=== PATIENT | female | born 1950 ===

== ENCOUNTER 2016-08-22 11:59 | Inpatient (IN) | payer MEDICARE, MEDICAID ==
[2016-08-22 11:59] VITALS: BMI 28.3
[2016-08-22] MEDS ORDERED: Albuterol-Ipratrop 3 mg / 0.5 (3 ml) UD IH STA (12:30)
--- NOTE | 2016-08-22 12:32 | ED PDOC ---
HPI: SOB/CHF/COPD Time Seen by Provider: 08/22/16 12:25 Chief Complaint (Nursing): Shortness Of Breath History Per: Patient (SOB assoc with cough productive white sputum. No improvement with inhalers at home. No fever. Recently hospitalized with pneumonia.) Onset/Duration Of Symptoms: Days (2) Current Symptoms Are (Timing): Still Present Quality: Tightness Exacerbating Factor(s): Coughing Current Respiratory Medications: See Home Med List Severity: Moderate Associated Symptoms: Productive Cough. denies: Fever, Chest Pain Past Medical History Vital Signs: Last Vital Signs Temp 98.6 F 08/22/16 12:16 Pulse 90 08/22/16 12:16 Resp 22 08/22/16 12:55 BP 114/81 08/22/16 12:16 Pulse Ox 97 08/22/16 12:32 - Medical History PMH: HTN - Family History Family History: States: Unknown Family Hx - Home Medications Home Medications: Ambulatory Orders Medication Instructions Recorded ALPRAZolam [Xanax] 1 mg PO TID 06/08/16 Melatonin 5 mg PO HS 06/08/16 [place]-3 Fatty Acids/Fish Oil 1 cap PO DAILY 06/08/16 [[place]-3 1,000 mg Softgel] Tocilizumab [Actemra] 162 mg SC Q14D 06/08/16 Turmeric Root Extract [Turmeric] 1 cap PO DAILY 06/08/16 Valsartan [Diovan] 160 mg PO DAILY 06/08/16 Cyanocobalamin [Vitamin B12 1000 1,000 mcg PO DAILY #14 tab 06/13/16 mcg Tab] Docusate [Colace] 100 mg PO BID #0 cap 06/14/16 - Allergies Allergies/Adverse Reactions: Allergies Allergy/AdvReac Type Severity Reaction Status Date / Time Sulfa (Sulfonamide Allergy RASH Verified 06/14/16 17:37 Antibiotics) Review of Systems ROS Statement: Except As Marked, All Systems Reviewed And Found Negative Respiratory: Positive for: Cough, Shortness of Breath Physical Exam - Reviewed Nursing Documentation Reviewed: Yes Vital Signs Reviewed: Yes - Physical Exam Appears: Positive for: Non-toxic, No Acute Distress Head Exam: Positive for: ATRAUMATIC, NORMAL INSPECTION, NORMOCEPHALIC Skin: Positive for: Normal Color, Warm, DRY Eye Exam: Positive for: EOMI, Normal appearance, PERRL ENT: Positive for: Normal ENT Inspection Neck: Positive for: Normal, Painless ROM Cardiovascular/Chest: Positive for: Regular Rate, Rhythm Respiratory: Positive for: Rhonchi. Negative for: Wheezing Gastrointestinal/Abdominal: Positive for: Normal Exam, Bowel Sounds, Soft Back: Positive for: Normal Inspection Extremity: Positive for: Normal ROM Neurologic/Psych: Positive for: Alert, Oriented - Laboratory Results Result Diagrams: 08/22/16 12:40 08/22/16 12:40 - ECG O2 Sat by Pulse Oximetry: 97 Disposition - Clinical Impression Clinical Impression: Obstructive chronic bronchitis with exacerbation - Patient ED Disposition Is Patient to be Admitted: Yes - Disposition Disposition Time: 14:57 Condition: FAIR - Pt Status Changed To: Hospital Disposition Of: Observation - POA Present On Arrival: None
[2016-08-22 12:57] LABS: BASO % 0.6 % (0.0-2.0); EOS # 0.2 K/uL (0.0-0.7); EOS % 2.2 % (0.0-4.0); HEMATOCRIT 39.8 % (34.0-47.0); LYMPH # 1.4 K/uL (1.0-4.3); LYMPH % 19.3 % (20.0-40.0); MEAN CELL VOLUME 85.2 fl (81.0-99.0); MEAN CORPUSCULAR HEMOGLOBIN 28.1 pg (27.0-31.0); MEAN PLATELET VOLUME 9.4 fl (7.2-11.7); MONO # 0.7 K/uL (0.0-0.8); NEUT # 4.7 K/uL (1.8-7.0); NEUT % 67.9 % (50.0-75.0); NRBC % 0.1 % (0.0-0.0); RED CELL DISTRIBUTION WIDTH 15.1 % (11.5-14.5)
[2016-08-22 13:04] LABS: ALB/GLOB RATIO 0.9 (1.0-2.1); ALKALINE PHOSPHATASE 70 U/L (38-126); ALT/SGPT 26 U/L (9-52); AST/SGOT 39 U/L (14-36); BILIRUBIN,TOTAL 1.2 mg/dl (0.2-1.3); BLOOD UREA NITROGEN 19 mg/dl (7-17); CALCIUM 9.9 mg/dL (8.4-10.2); CARBON DIOXIDE 25 mmol/L (22-30); CHLORIDE 107 mmol/L (98-107); GFR AFRICAN-AMERICAN > 60; GLUCOSE,RANDOM 92 mg/dL (65-105); POTASSIUM 4.5 MMOL/L (3.6-5.0); SODIUM 146 mmol/l (132-148); TOTAL PROTEIN 7.8 G/DL (6.3-8.2)
[2016-08-22] MEDS ORDERED: Albuterol-Ipratrop 3 mg / 0.5 (3 ml) UD ONE (13:22)
--- NOTE | 2016-08-22 15:02 | RAD ---
HISTORY: cough COMPARISON: Comparison made with prior chest radiograph 07/08/2016. FINDINGS: LUNGS: Atelectasis mild right basilar atelectasis and or scarring slightly improved from prior exam. PLEURA: No evidence of significant effusion or pneumothorax CARDIOVASCULAR: Aorta is slightly ectatic and uncoiled. Heart size within range of normal. OSSEOUS STRUCTURES: Mild multilevel degenerative spondylosis of the thoracic spine VISUALIZED UPPER ABDOMEN: Normal. OTHER FINDINGS: None. IMPRESSION: Mild residual right basilar atelectasis and or scarring improved from prior study
--- NOTE | 2016-08-22 16:16 | CARD ---
APPROVED REPORT EKG Measurement Heart [id number] <Conclusion> Normal sinus rhythm Possible Left atrial enlargement Borderline ECG
[2016-08-22] MEDS ORDERED: Patient's Own Med (Budesonide/Formoterol Fumarate [Symbicort 160-4.5 Mcg Inhaler] 1 PUFF) IH SCH (18:15)
[2016-08-22] MEDS: Albuterol-Ipratrop 3 mg / 0.5 (3 ml) UD INH SCH (20:00)
[2016-08-22] MEDS: methylPREDNISolone 60 MG in Sodium Chloride 0.9% 50 ML IVPB SCH (21:47)
[2016-08-22] MEDS: Levalbuterol 0.63 MG/3 ML Inhal Soln UD INH SCH (22:30)
[2016-08-22] MEDS: Levalbuterol 0.63 MG/3 ML Inhal Soln UD INH PRN (22:30)
--- NOTE | 2016-08-22 23:11 | CP.PCM.HP ---
Past Patient History - Past Medical History & Family History Past Medical History?: Yes - Past Social History Smoking Status: Never Smoked - CARDIAC Hx Cardiac Disorders: Yes Hx Hypertension: Yes - PULMONARY Hx Respiratory Disorders: Yes Hx Chronic Obstructive Pulmonary Disease (COPD): Yes Hx Pulmonary Edema: Yes - NEUROLOGICAL Hx Neurological Disorder: No - HEENT Hx HEENT Problems: Yes Hx Macular Degeneration: Yes - RENAL Hx Chronic Kidney Disease: No - ENDOCRINE/METABOLIC Hx Endocrine Disorders: No - HEMATOLOGICAL/ONCOLOGICAL Hx Blood Disorders: Yes Hx Blood Transfusions: Yes Hx Blood Transfusion Reaction: No Hx Hepatitis C: Yes - INTEGUMENTARY Hx Dermatological Problems: No - MUSCULOSKELETAL/RHEUMATOLOGICAL Hx Musculoskeletal Disorders: No Hx Falls: No - GASTROINTESTINAL Hx Gastrointestinal Disorders: No - GENITOURINARY/GYNECOLOGICAL Hx Genitourinary Disorders: No - PSYCHIATRIC Hx Psychophysiologic Disorder: No Hx Substance Use: No - SURGICAL HISTORY Hx Surgeries: Yes Hx Orthopedic Surgery: Yes (right shoulder,right knee) - ANESTHESIA Hx Anesthesia: Yes Hx Anesthesia Reactions: No Meds Allergies/Adverse Reactions: Allergies Allergy/AdvReac Type Severity Reaction Status Date / Time Sulfa (Sulfonamide Allergy RASH Verified 06/14/16 17:37 Antibiotics) Results - Vital Signs Recent Vital Signs: Last Vital Signs Temp 98.4 F 08/22/16 21:00 Pulse 89 08/22/16 22:30 Resp 20 08/22/16 21:00 BP 124/79 08/22/16 21:00 Pulse Ox 97 08/22/16 21:00 - Labs Result Diagrams: 08/22/16 12:40 08/22/16 12:40
[2016-08-23] MEDS: methylPREDNISolone 60 MG in Sodium Chloride 0.9% 50 ML IVPB SCH ×4 (04:34→22:14)
[2016-08-23 06:26] LABS: BASO % 0.1 % (0.0-2.0); HEMATOCRIT 38.9 % (34.0-47.0); LYMPH # 0.4 K/uL (1.0-4.3); LYMPH % 7.3 % (20.0-40.0); MEAN CELL VOLUME 84.2 fl (81.0-99.0); MEAN CORPUSCULAR HEMOGLOBIN 27.9 pg (27.0-31.0); MEAN CORPUSCULAR HGB CONC 33.2 g/dL (33.0-37.0); MEAN PLATELET VOLUME 9.8 fl (7.2-11.7); MONO # 0.1 K/uL (0.0-0.8); NEUT # 4.5 K/uL (1.8-7.0); NEUT % 89.6 % (50.0-75.0); NRBC % 0.1 % (0.0-0.0); PLATELET COUNT 95 K/uL (130-400); RED CELL DISTRIBUTION WIDTH 14.8 % (11.5-14.5)
[2016-08-23 06:32] LABS: BLOOD UREA NITROGEN 16 mg/dl (7-17); CALCIUM 10.1 mg/dL (8.4-10.2); CARBON DIOXIDE 23 mmol/L (22-30); CHLORIDE 107 mmol/L (98-107); GFR AFRICAN-AMERICAN > 60; GLUCOSE,RANDOM 152 mg/dL (65-105); POTASSIUM 4.3 MMOL/L (3.6-5.0); SODIUM 144 mmol/l (132-148)
[2016-08-23] MEDS: Albuterol-Ipratrop 3 mg / 0.5 (3 ml) UD INH SCH (07:57)
[2016-08-23] MEDS: Levalbuterol 0.63 MG/3 ML Inhal Soln UD INH PRN (08:04)
[2016-08-23] MEDS: Omega-3-Acid Ethyl Esters 1 GM Cap PO SCH (09:01)
[2016-08-23] MEDS ORDERED: Sodium Chloride 0.9% 50 ML IV ONE (09:06)
[2016-08-23] MEDS ORDERED: Iohexol 300 100 ML IJ ONE (09:06)
[2016-08-23 10:48] LABS: NEUTROPHIL 89 % (42-75); TOTAL CELLS COUNTED 100
[2016-08-23 10:51] LABS: LARGE PLATELETS PRESENT
--- NOTE | 2016-08-23 11:10 | CP.PCM.CON ---
History of Present Illness - History of Present Illness History of Present Illness: 66 yo female Hx of Hep C (treated) Cirrhosis RA HTN COPD anxiety/ depression admitted with exac COPD, non resolving pneumonia, tachycardia chronic constipation IV rx in progress Past Patient History - Past Medical History & Family History Past Medical History?: Yes - Past Social History Smoking Status: Never Smoked - CARDIAC Hx Cardiac Disorders: Yes Hx Hypertension: Yes - PULMONARY Hx Respiratory Disorders: Yes Hx Chronic Obstructive Pulmonary Disease (COPD): Yes Hx Pulmonary Edema: Yes - NEUROLOGICAL Hx Neurological Disorder: No - HEENT Hx HEENT Problems: Yes Hx Macular Degeneration: Yes - RENAL Hx Chronic Kidney Disease: No - ENDOCRINE/METABOLIC Hx Endocrine Disorders: No - HEMATOLOGICAL/ONCOLOGICAL Hx Blood Disorders: Yes Hx Blood Transfusions: Yes Hx Blood Transfusion Reaction: No Hx Hepatitis C: Yes - INTEGUMENTARY Hx Dermatological Problems: No - MUSCULOSKELETAL/RHEUMATOLOGICAL Hx Musculoskeletal Disorders: No Hx Falls: No - GASTROINTESTINAL Hx Gastrointestinal Disorders: No - GENITOURINARY/GYNECOLOGICAL Hx Genitourinary Disorders: No - PSYCHIATRIC Hx Psychophysiologic Disorder: No Hx Substance Use: No - SURGICAL HISTORY Hx Surgeries: Yes Hx Orthopedic Surgery: Yes (right shoulder,right knee) - ANESTHESIA Hx Anesthesia: Yes Hx Anesthesia Reactions: No Meds Allergies/Adverse Reactions: Allergies Allergy/AdvReac Type Severity Reaction Status Date / Time Sulfa (Sulfonamide Allergy RASH Verified 06/14/16 17:37 Antibiotics) - Medications Medications: Current Medications Alprazolam (Xanax) 1 mg PO TID PRN PRN Reason: Anxiety Last Admin: 08/22/16 23:04 Dose: 1 mg Cyanocobalamin (Vitamin B12 1000 Mcg Tab) 1,000 mcg PO DAILY [facility] Last Admin: 08/23/16 09:01 Dose: 1,000 mcg Home Med (Melatonin [Melatonin]) 5 mg PO HS [facility] Levofloxacin/Dextrose (Levaquin 500mg) 100 mls @ 100 mls/hr IVPB DAILY [facility] Last Admin: 08/23/16 09:03 Dose: 100 mls/hr Methylprednisolone 60 mg/ (Sodium Chloride) 50.96 mls @ 100 mls/hr IVPB Q6 [facility] Last Admin: 08/23/16 09:03 Dose: 100 mls/hr Levalbuterol HCl (Xopenex) 0.63 mg INH RQ6 [facility] [id number] Ethyl Esters (Lovaza) 1 gm PO DAILY [facility] Last Admin: 08/23/16 09:01 Dose: 1 gm Valsartan (Diovan) 160 mg PO DAILY [facility] Last Admin: 08/23/16 09:01 Dose: 160 mg Results - Vital Signs Recent Vital Signs: Last Vital Signs Temp 97.8 F 08/23/16 09:00 Pulse 105 H 08/23/16 09:00 Resp 20 08/23/16 09:00 BP 154/76 H 08/23/16 09:00 Pulse Ox 95 08/23/16 09:00 - Labs Result Diagrams: 08/23/16 05:40 08/23/16 05:40 Labs: Laboratory Results - last 24 hr 08/23/16 05:40 WBC 5.0 RBC 4.62 Hgb 12.9 Hct 38.9 MCV 84.2 MCH 27.9 MCHC 33.2 RDW 14.8 H Plt Count 95 L D MPV 9.8 Neut % (Auto) 89.6 H Lymph % (Auto) 7.3 L [place] % (Auto) 3.0 Eos % (Auto) 0.0 Baso % (Auto) 0.1 Neut # 4.5 Lymph # 0.4 L [place] # 0.1 Eos # 0.0 Baso # 0.0 Neutrophils % (Manual) 89 H Band Neutrophils % 1 Lymphocytes % (Manual) 5 L Monocytes % (Manual) 5 Platelet Estimate Decreased L Large Platelets Present Anisocytosis (manual) Slight Sodium 144 Potassium 4.3 Chloride 107 Carbon Dioxide 23 Anion Gap 18 BUN 16 Creatinine 0.5 L Est GFR ( Amer) > 60 Est GFR (Non-Af Amer) > 60 Random Glucose 152 H Calcium 10.1
--- NOTE | 2016-08-23 11:47 | CT ---
PROCEDURE: CT Chest with contrast HISTORY: Tachycardia, sob COMPARISON: None. TECHNIQUE: Contiguous axial images were obtained through the chest with intravenous contrast enhancement. Sagittal and coronal reconstructions were performed. IV contrast: 95 cc Omnipaque 350 Radiation dose (DLP): 617.16. MGy-cm. This CT exam was performed using one or more of the following dose reduction techniques: Automated exposure control, adjustment of the mA and/or kV according to patient size, and/or use of iterative reconstruction technique. FINDINGS: LUNGS: Chronic changes, right middle lobe and right lower lobe. There is a component of volume loss not seen previously without obvious apparent endobronchial abnormality. Overall appearance suggests bronchiectasis. Stable 4 mm pulmonary nodule superior segment right lower lobe. No additional pulmonary nodules, masses or infiltrates. Lingular scarring, apical scarring on the left. Lower airway disease, thickening of the bronchi bilaterally without evidence of mucous plugging. MEDIASTINUM: Unremarkable thoracic aorta. No aneurysm or dissection. Normal sized heart. Main pulmonary artery unremarkable. No vascular congestion. No lymphadenopathy. PLEURA: No pleural fluid. No pneumothorax. BONES: No fracture. No destructive lesion. UPPER ABDOMEN: Incompletely visualized hepatosplenomegaly. OTHER FINDINGS: None. IMPRESSION: 1. Chronic changes right middle lobe right lower lobe likely bronchiectasis. A component of volume loss in the affected segments noted. 2. Stable pulmonary nodule superior segment right lower lobe. Additional pulmonary nodules apparent on the prior study are obscured by the collapse of the right lung.
[2016-08-23] MEDS: Levalbuterol 0.63 MG/3 ML Inhal Soln UD INH SCH ×2 (13:46→20:10)
[2016-08-23] MEDS: MELATONIN 10 MG PO SCH (22:14)
--- NOTE | 2016-08-23 23:33 | CP.PCM.PN ---
Subjective - Date & Time of Evaluation Date of Evaluation: 08/23/16 Time of Evaluation: 13:20 Objective - Vital Signs/Intake and Output Vital Signs (last 24 hours): Temp Pulse Resp BP Pulse Ox 97.3 F L 86 18 137/75 95 08/23/16 20:25 08/23/16 20:25 08/23/16 20:25 08/23/16 20:25 08/23/16 20:25 - Medications Medications: Current Medications Alprazolam (Xanax) 1 mg PO TID PRN PRN Reason: Anxiety Last Admin: 08/23/16 22:18 Dose: 1 mg Cyanocobalamin (Vitamin B12 1000 Mcg Tab) 1,000 mcg PO DAILY REPLACED BY [facility] Last Admin: 08/23/16 09:01 Dose: 1,000 mcg Home Med (Melatonin [Melatonin]) 10 mg PO HS [facility]PLAC[facility] Last Admin: 08/23/16 22:14 Dose: 10 mg Levofloxacin/Dextrose (Levaquin 500mg) 100 mls @ 100 mls/hr IVPB DAILY [facility]PL[facility] BY [facility] Last Admin: 08/23/16 09:03 Dose: 100 mls/hr Methylprednisolone 60 mg/ (Sodium Chloride) 50.96 mls @ 100 mls/hr IVPB Q6 [facility]PL[facility] Last Admin: 08/23/16 22:14 Dose: 100 mls/hr Levalbuterol HCl (Xopenex) 0.63 mg INH RQ6 [facility]PL[facility] Last Admin: 08/23/16 20:10 Dose: 0.63 mg Neknz-5-Cjnm Ethyl Esters (Lovaza) 1 gm PO DAILY REPLACED BY [facility] Last Admin: 08/23/16 09:01 Dose: 1 gm Valsartan (Diovan) 160 mg PO DAILY REPLACED BY [facility] Last Admin: 08/23/16 09:01 Dose: 160 mg
[2016-08-24] MEDS: Levalbuterol 0.63 MG/3 ML Inhal Soln UD INH SCH ×4 (01:10→20:00)
[2016-08-24] MEDS: methylPREDNISolone 60 MG in Sodium Chloride 0.9% 50 ML IVPB SCH ×4 (05:00→21:27)
[2016-08-24] MEDS: Omega-3-Acid Ethyl Esters 1 GM Cap PO SCH (09:13)
[2016-08-24] MEDS ORDERED: Sodium Chloride 3% for Inhalation 4 ML VIAL.NEB IH PRN (09:20)
--- NOTE | 2016-08-24 11:03 | CON ---
DATE: 08/24/2016 HISTORY OF PRESENT ILLNESS: The patient is a 66-old female who was referred for pulmonary evaluation because of nonresolving pneumonia, tachycardia, shortness of breath with cough for the past several days prior to presentation. She is well-known to me from prior admission when she was admitted to [facility] transitional care unit, and had a diagnosis of pneumonia with bronchiectasis. PAST MEDICAL HISTORY: Rheumatoid arthritis, hepatitis C, anxiety, depression, and COPD with pneumoni a. FAMILY HISTORY: Nonrevealing. SOCIAL HISTORY: She does not smoke or drink and has no ____ exposure to ____. REVIEW OF SYSTEMS: Remarkable for cough, shortness of breath, exercise intolerance. PHYSICAL EXAMINATION: GENERAL: The patient is alert, oriented, appears to be clinically improving since admission. VITAL SIGNS: Blood pressure 131/74, pulse of 63, respiratory rate 18. She is afebrile. O2 sat 95% on room air. SKIN: Shows fair turgor. HEENT: Pupils are equal and react to light and accommodation. Mouth shows fair hygiene. NECK: JVP flat. LUNGS: Bilateral scattered rales. HEART: S1, S2. BREASTS: Normal. ABDOMEN: Soft, nontender. No organomegaly. EXTREMITIES: Show no edema or cyanosis. There are changes of arthritis noted. LABORATORY DATA: CT scan of the chest is remarkable for findings compatible with bronchiectasis, pul monary nodularity, with some atelectatic changes of lungs clinically unchanged from last scan done se veral months ago. WBC 5.0, hemoglobin 12.9, platelet count 95,000. Sodium 144, potassium 4.3, BUN of 16, creatinine 0. 5, serum glucose 152. IMPRESSION: Acute exacerbation of chronic obstructive pulmonary disease with bronchiectasis. This c ould also be due to a component of rheumatoid lung disease, history of hepatitis C. PLAN: Obtain sputum for Gram stain and cultures. Continue IV antibiotics. Septic workup already st arted. The patient does not need aggressive pulmonary intervention including bronchoscopy at this po int. Will need postural drainage with chest PT and aerosolized bronchodilators. We will repeat CT s can of the chest in several months to evaluate stability of pulmonary nodules, some bronchiectatic ch anges. If changes worsen, then maybe bronchoscopy will be entertained. If changes remain the same, then just therapy with antibiotics and postural drainage with aerosolized bronchodilators would be re commended. We will continue to follow with you. Case discussed with the patient at length. Evens Potts MD cc: 62 TT: 08/24/2016 11:02:52 Confirmation # [id number] Dictation # [id number] andie
--- NOTE | 2016-08-24 13:46 | CP.PCM.PN ---
Subjective - Date & Time of Evaluation Date of Evaluation: 08/24/16 Time of Evaluation: 09:00 - Subjective Subjective: 66 yo female Hx of Hep C (treated) Cirrhosis RA HTN COPD anxiety/ depression admitted with exac COPD, non resolving pneumonia, tachycardia chronic constipation IV rx in progress Objective - Vital Signs/Intake and Output Vital Signs (last 24 hours): Temp Pulse Resp BP Pulse Ox 97.8 F 82 18 152/79 H 96 08/24/16 12:28 08/24/16 12:28 08/24/16 12:28 08/24/16 12:28 08/24/16 12:28 - Medications Medications: Current Medications Alprazolam (Xanax) 1 mg PO TID PRN PRN Reason: Anxiety Last Admin: 08/23/16 22:18 Dose: 1 mg Cyanocobalamin (Vitamin B12 1000 Mcg Tab) 1,000 mcg PO DAILY [facility] Last Admin: 08/24/16 09:13 Dose: 1,000 mcg Home Med (Melatonin [Melatonin]) 10 mg PO HS [facility] Last Admin: 08/23/16 22:14 Dose: 10 mg Levofloxacin/Dextrose (Levaquin 500mg) 100 mls @ 100 mls/hr IVPB DAILY [facility] Last Admin: 08/24/16 09:14 Dose: 100 mls/hr Methylprednisolone 60 mg/ (Sodium Chloride) 50.96 mls @ 100 mls/hr IVPB Q6 [facility] Last Admin: 08/24/16 09:14 Dose: 100 mls/hr Lactulose (Enulose) 20 gm PO DAILY PRN PRN Reason: Constipation Levalbuterol HCl (Xopenex) 0.63 mg INH RQ6 [facility] Last Admin: 08/24/16 07:38 Dose: 0.63 mg Hdqkk-[id number] Ethyl Esters (Lovaza) 1 gm PO DAILY [facility] Last Admin: 08/24/16 09:13 Dose: 1 gm Valsartan (Diovan) 160 mg PO DAILY [facility] Last Admin: 08/24/16 09:13 Dose: 160 mg - Constitutional Appears: Non-toxic, Cachectic - Head Exam Head Exam: NORMOCEPHALIC - Eye Exam Eye Exam: PERRL. absent: Scleral icterus - ENT Exam ENT Exam: Mucous Membranes Dry - Neck Exam Neck Exam: absent: Lymphadenopathy - Respiratory Exam Respiratory Exam: Decreased Breath Sounds, Rhonchi - Cardiovascular Exam Cardiovascular Exam: REGULAR RHYTHM, +S1, +S2 - GI/Abdominal Exam GI & Abdominal Exam: Distended, Soft. absent: Tenderness - Rectal Exam Rectal Exam: Deferred - Exam Exam: NORMAL INSPECTION Assessment and Plan (1) COPD exacerbation Status: Acute (2) Pneumonia Status: Acute (3) Rheumatoid arthritis Status: Acute - Assessment and Plan (Free Text) Assessment: lung findings could be related to RA dr Potts on board- will need to follow as out pt prognosis guarded
[2016-08-24] MEDS: MELATONIN 10 MG PO SCH (21:27)
--- NOTE | 2016-08-24 22:16 | CP.PCM.PN ---
Subjective - Date & Time of Evaluation Date of Evaluation: 08/24/16 Time of Evaluation: 16:20 Objective - Vital Signs/Intake and Output Vital Signs (last 24 hours): Temp Pulse Resp BP Pulse Ox 98.4 F 91 H 20 105/73 96 08/24/16 19:27 08/24/16 19:27 08/24/16 19:27 08/24/16 19:27 08/24/16 19:27 - Medications Medications: Current Medications Alprazolam (Xanax) 1 mg PO TID PRN PRN Reason: Anxiety Last Admin: 08/24/16 21:20 Dose: 1 mg Cyanocobalamin (Vitamin B12 1000 Mcg Tab) 1,000 mcg PO DAILY [facility] Last Admin: 08/24/16 09:13 Dose: 1,000 mcg Home Med (Melatonin [Melatonin]) 10 mg PO HS [facility] Last Admin: 08/24/16 21:27 Dose: 10 mg Levofloxacin/Dextrose (Levaquin 500mg) 100 mls @ 100 mls/hr IVPB DAILY [facility] Last Admin: 08/24/16 09:14 Dose: 100 mls/hr Methylprednisolone 60 mg/ (Sodium Chloride) 50.96 mls @ 100 mls/hr IVPB Q6 [facility] Last Admin: 08/24/16 21:27 Dose: 100 mls/hr Lactulose (Enulose) 20 gm PO DAILY PRN PRN Reason: Constipation Levalbuterol HCl (Xopenex) 0.63 mg INH RQ6 [facility] Last Admin: 08/24/16 20:00 Dose: 0.63 mg Pepzd-6-Ueks Ethyl Esters (Lovaza) 1 gm PO DAILY [facility] Last Admin: 08/24/16 09:13 Dose: 1 gm Valsartan (Diovan) 160 mg PO DAILY [facility] Last Admin: 08/24/16 09:13 Dose: 160 mg
[2016-08-25] MEDS: Levalbuterol 0.63 MG/3 ML Inhal Soln UD INH SCH ×3 (01:00→13:17)
[2016-08-25] MEDS: methylPREDNISolone 60 MG in Sodium Chloride 0.9% 50 ML IVPB SCH ×2 (04:45→09:12)
--- NOTE | 2016-08-25 08:29 | CP.PCM.PN ---
Subjective - Date & Time of Evaluation Date of Evaluation: 08/25/16 Time of Evaluation: 08:29 - Subjective Subjective: COUGH WITH SOB IMPROVING NO CHEST PAINS Objective - Vital Signs/Intake and Output Vital Signs (last 24 hours): Temp Pulse Resp BP Pulse Ox 97.9 F 60 20 136/79 95 08/25/16 05:08 08/25/16 05:08 08/25/16 05:08 08/25/16 05:08 08/25/16 05:08 - Medications Medications: Current Medications Alprazolam (Xanax) 1 mg PO TID PRN PRN Reason: Anxiety Last Admin: 08/24/16 21:20 Dose: 1 mg Cyanocobalamin (Vitamin B12 1000 Mcg Tab) 1,000 mcg PO DAILY [facility] Last Admin: 08/24/16 09:13 Dose: 1,000 mcg Home Med (Melatonin [Melatonin]) 10 mg PO HS [facility] Last Admin: 08/24/16 21:27 Dose: 10 mg Levofloxacin/Dextrose (Levaquin 500mg) 100 mls @ 100 mls/hr IVPB DAILY [facility] Last Admin: 08/24/16 09:14 Dose: 100 mls/hr Methylprednisolone 60 mg/ (Sodium Chloride) 50.96 mls @ 100 mls/hr IVPB Q6 [facility] Last Admin: 08/25/16 04:45 Dose: 100 mls/hr Lactulose (Enulose) 20 gm PO DAILY PRN PRN Reason: Constipation Levalbuterol HCl (Xopenex) 0.63 mg INH RQ6 [facility] Last Admin: 08/25/16 07:20 Dose: 0.63 mg Kxzhk-4-Yjfb Ethyl Esters (Lovaza) 1 gm PO DAILY [facility] Last Admin: 08/24/16 09:13 Dose: 1 gm Valsartan (Diovan) 160 mg PO DAILY [facility] Last Admin: 08/24/16 09:13 Dose: 160 mg - Constitutional Appears: Well - Head Exam Head Exam: ATRAUMATIC, NORMAL INSPECTION, NORMOCEPHALIC - Eye Exam Eye Exam: EOMI, Normal appearance, PERRL Pupil Exam: NORMAL ACCOMODATION, PERRL - ENT Exam ENT Exam: Mucous Membranes Moist, Normal Exam - Neck Exam Neck Exam: Full ROM, Normal Inspection. absent: Lymphadenopathy - Respiratory Exam Respiratory Exam: Decreased Breath Sounds, Prolonged Expiratory Phase, Rales, NORMAL BREATHING PATTERN - Cardiovascular Exam Cardiovascular Exam: REGULAR RHYTHM, +S1, +S2. absent: Murmur - GI/Abdominal Exam GI & Abdominal Exam: Soft, Normal Bowel Sounds. absent: Tenderness - Rectal Exam Rectal Exam: NORMAL INSPECTION - Extremities Exam Extremities Exam: Full ROM, Normal Capillary Refill, Normal Inspection. absent : Joint Swelling, Pedal Edema - Back Exam Back Exam: NORMAL INSPECTION - Neurological Exam Neurological Exam: Alert, Awake, CN II-XII Intact, Normal Gait, Oriented x3 - Psychiatric Exam Psychiatric exam: Normal Affect, Normal Mood - Skin Skin Exam: Dry, Intact, Normal Color, Warm Assessment and Plan - Assessment and Plan (Free Text) Assessment: ACUTE EXAC OF COPD BRONCHIECTASIS Plan: CONTINUE BRONCHODILATORS AND ANTIBIOTIC RX WILL LEAVE PRESCRIPTION FOR NEBULIZER AND XOPONEX ON DISCHARGE
[2016-08-25] MEDS: Omega-3-Acid Ethyl Esters 1 GM Cap PO SCH (08:52)
[2016-08-25 09:00] VITALS: PULSE 70
[2016-08-25 12:21] VITALS: BP 124/69; RESP 20; TEMP 97.6; O2SAT 96
--- NOTE | 2016-08-25 17:56 | CP.PCM.DIS ---
Provider - Provider Date of Admission: 08/23/16 14:22 Attending physician: Swapnil Collazo MD Time Spent in preparation of Discharge (in minutes): 25 Hospital Course - Lab Results Lab Results: Micro Results 08/24/16 10:41 Blood-Venous Blood Culture - Preliminary NO GROWTH AFTER 24 HOURS 08/24/16 10:41 Blood-Venous Blood Culture - Preliminary NO GROWTH AFTER 24 HOURS Most Recent Lab Values WBC 5.0 K/uL (4.8-10.8) 08/23/16 05:40 RBC 4.62 Mil/uL (3.80-5.20) 08/23/16 05:40 Hgb 12.9 g/dL (12.0-16.0) 08/23/16 05:40 Hct 38.9 % (34.0-47.0) 08/23/16 05:40 MCV 84.2 fl (81.0-99.0) 08/23/16 05:40 MCH 27.9 pg (27.0-31.0) 08/23/16 05:40 MCHC 33.2 g/dL (33.0-37.0) 08/23/16 05:40 RDW 14.8 % (11.5-14.5) H 08/23/16 05:40 Plt Count 95 K/uL (130-400) L D 08/23/16 05:40 MPV 9.8 fl (7.2-11.7) 08/23/16 05:40 Neut % (Auto) 89.6 % (50.0-75.0) H 08/23/16 05:40 Lymph % (Auto) 7.3 % (20.0-40.0) L 08/23/16 05:40 [place] % (Auto) 3.0 % (0.0-10.0) 08/23/16 05:40 Eos % (Auto) 0.0 % (0.0-4.0) 08/23/16 05:40 Baso % (Auto) 0.1 % (0.0-2.0) 08/23/16 05:40 Neut # 4.5 K/uL (1.8-7.0) 08/23/16 05:40 Lymph # 0.4 K/uL (1.0-4.3) L 08/23/16 05:40 [place] # 0.1 K/uL (0.0-0.8) 08/23/16 05:40 Eos # 0.0 K/uL (0.0-0.7) 08/23/16 05:40 Baso # 0.0 K/uL (0.0-0.2) 08/23/16 05:40 Neutrophils % (Manual) 89 % (42-75) H 08/23/16 05:40 Band Neutrophils % 1 % (0-2) 08/23/16 05:40 Lymphocytes % (Manual) 5 % (20-50) L 08/23/16 05:40 Monocytes % (Manual) 5 % (0-10) 08/23/16 05:40 Platelet Estimate Decreased (NORMAL) L 08/23/16 05:40 Large Platelets Present 08/23/16 05:40 Anisocytosis (manual) Slight 08/23/16 05:40 Sodium 144 mmol/l (132-148) 08/23/16 05:40 Potassium 4.3 MMOL/L (3.6-5.0) 08/23/16 05:40 Chloride 107 mmol/L (98-107) 08/23/16 05:40 Carbon Dioxide 23 mmol/L (22-30) 08/23/16 05:40 Anion Gap 18 (10-20) 08/23/16 05:40 BUN 16 mg/dl (7-17) 08/23/16 05:40 Creatinine 0.5 mg/dL (0.7-1.2) L 08/23/16 05:40 Est GFR ( Amer) > 60 08/23/16 05:40 Est GFR (Non-Af Amer) > 60 08/23/16 05:40 Random Glucose 152 mg/dL (65-105) H 08/23/16 05:40 Calcium 10.1 mg/dL (8.4-10.2) 08/23/16 05:40 Total Bilirubin 1.2 mg/dl (0.2-1.3) 08/22/16 12:40 AST 39 U/L (14-36) H D 08/22/16 12:40 ALT 26 U/L (9-52) 08/22/16 12:40 Alkaline Phosphatase 70 U/L (38-126) 08/22/16 12:40 Total Protein 7.8 G/DL (6.3-8.2) 08/22/16 12:40 Albumin 3.6 g/dL (3.5-5.0) 08/22/16 12:40 Globulin 4.2 gm/dL (2.2-3.9) H 08/22/16 12:40 Albumin/Globulin Ratio 0.9 (1.0-2.1) L 08/22/16 12:40 Discharge Exam - Head Exam Head Exam: ATRAUMATIC, NORMAL INSPECTION, NORMOCEPHALIC Discharge Plan - Discharge Medications Prescriptions: Valsartan [Diovan] 160 mg PO DAILY #30 tablet Levofloxacin [Levaquin] 500 mg PO DAILY #5 tablet Levalbuterol HCl [Xopenex] 0.63 mg IH TID #90 vial.neb - Follow Up Plan Condition: FAIR Disposition: HOME/ ROUTINE
--- NOTE | 2016-09-08 09:10 | PQF GENQUE ---
This form is a permanent part of the medical record DR. Castor SEMAN: ER CLINICAL IMPRESSION: OBSTRUCTIVE CHRONIC BRONCHITIS WITH EXACERBATION. PULMONARY CONSULT: DR. Taurus MEJÍA IMPRESSION: ACUTE EXACERBATION OF COPD WITH BRONCHIECTASIS. ID CONSULT: DR. Matthew JEAN-BAPTISTE EXACERBATION OF COPD, NON RESOLVING PNEUMONIA. D/C SUMMARY AND H&P IN DRAFT NOT COMPLETE COULD YOU PLEASE CONFIRM PRINCIPAL DIAGNOSIS AND IF PNEUMONIA WAS RULED IN OR OUT (POA). Clarification of your documentation is requested to better reflect the severity of illness and intensity of treatment of your patient. Indicators present: No Indicators Present [] Specify: [] [] Specify: [] [] Specify: [] [] Specify: [] Location in the medical record that reflects the above clinical findings: [X] Acute Exacerbation of COPD with Bronchiectasis, Pneumonia Ruled out Treatment Provided: [X] DuoNeb, IV Slumedrol and IV antibiotics PHYSICIAN'S RESPONSE Based on your medical judgment of the clinical indicators outlined above please clarify the following: [X] Practitioner response [] If unable to determine, please check the box, sign and date. Present On Admission (POA) Indicator: [X] Present at the time of admission [] Not present at the time of admission [] Clinically Undetermined In responding to this query, please exercise your independent professional judgment. The fact that a question is asked does not imply that any particular answer is desired or expected. Thank you for your clarification on this documentation. If you have any questions please call:[ ] * Thank you, * SOLITARIO CHIU [phone] instrument panel assembler GITA
== END 2016-08-25 14:38 | disposition home health service (06) | DRG 192 ==
LOC: H.ER 11:59 → H.ERHOLD 14:57 → H.TEL 16:18 → OBSVTOIN 08-23 14:22
PROVIDERS: ADMIT Internal Medicine; ATTEND Internal Medicine
PROC: 3E0F7GC Introduction of Other Therapeutic Substance into Respiratory Tract, Via Natural or Artificial Opening (ICD-10-PCS; principal; 2016-08-23)
DX: J44.1 Chronic obstructive pulmonary disease with (acute) exacerbation (principal); K74.60 Unspecified cirrhosis of liver; I10 Essential (primary) hypertension; H35.30 Unspecified macular degeneration; Z86.19 Personal history of other infectious and parasitic diseases; M06.9 Rheumatoid arthritis, unspecified; Z88.2 Allergy status to sulfonamides

== ENCOUNTER 2017-01-31 10:17 | Emergency (ER) | payer MEDICARE, OTHER ==
[2017-01-31 10:17] VITALS: BMI 28.3
[2017-01-31 10:24] VITALS: BP 115/69; PULSE 75; TEMP 97.9; O2SAT 100
--- NOTE | 2017-01-31 10:54 | ED PDOC ---
HPI: Female Pain Time Seen by Provider: 01/31/17 10:35 Chief Complaint (Nursing): Shortness Of Breath Chief Complaint (Provider): dysuria History Per: Patient History/Exam Limitations: no limitations Additional Complaint(s): Romi Amaya is a 66 year old female, with a previous medical history of hypertension and anxiety, who presents to the ED with complaints of dysuria associated with abdominal pain, nausea, vomiting and a fever of 102. Patient reports since June 2016 to having a UTI that has been evaluated by her urologist and ID specialist but continues to recur. Patient reports currently jennifer on Ampicillin since 01/24/17. She reports a CT performed 01/11 that showed fluid in her pelvic and cyst on right kidney. PMD: Dr. Duenas Past Medical History Reviewed: Historical Data, Nursing Documentation, Vital Signs Vital Signs: Last Vital Signs Temp 97.9 F 01/31/17 10:21 Pulse 75 01/31/17 10:21 Resp 18 01/31/17 10:21 BP 115/69 01/31/17 10:21 Pulse Ox 100 01/31/17 10:21 - Medical History PMH: COPD, HTN, Pneumonia Denies: Chronic Kidney Disease - Family History Family History: States: Unknown Family Hx - Home Medications Home Medications: Ambulatory Orders Medication Instructions Recorded ALPRAZolam [Xanax] 1 mg PO TID PRN 06/08/16 [place]-3 Fatty Acids/Fish Oil 1,000 mg PO DAILY 06/08/16 [[place]-3 1,000 mg Softgel] Cyanocobalamin [Vitamin B12 1000 1,000 mcg PO DAILY #14 tab 06/13/16 mcg Tab] Albuterol HFA [Ventolin HFA 90 2 puff IH Q4H PRN 08/22/16 mcg/actuation (8 g)] Budesonide/Formoterol Fumarate 1 puff IH Q12H 08/22/16 [Symbicort 160-4.5 Mcg Inhaler] Valsartan [Diovan] 160 mg PO DAILY #30 tablet 08/25/16 Ampicillin Trihydrate [Ampicillin 500 mg PO Q8H 01/31/17 Trihydrate] Fluticasone Propionate [Flonase] 2 spray REBA DAILY PRN 01/31/17 Magnesium Oxide [Magox 400] 400 mg PO DAILY 09/19/17 Montelukast [Singulair] 10 mg PO QPM 01/31/17 Phenazopyridine [Pyridium] 200 mg PO TID PRN #6 tab 01/31/17 Turmeric Root Extract [Turmeric] 500 mg PO DAILY 01/31/17 - Allergies Allergies/Adverse Reactions: Allergies Allergy/AdvReac Type Severity Reaction Status Date / Time Sulfa (Sulfonamide Allergy RASH Verified 01/31/17 10:21 Antibiotics) Review of Systems ROS Statement: Except As Marked, All Systems Reviewed And Found Negative Constitutional: Positive for: Fever Gastrointestinal: Positive for: Nausea, Vomiting, Abdominal Pain Genitourinary Female: Positive for: Dysuria Physical Exam - Reviewed Nursing Documentation Reviewed: Yes Vital Signs Reviewed: Yes - Physical Exam Appears: Positive for: Well, Non-toxic, No Acute Distress Head Exam: Positive for: ATRAUMATIC, NORMAL INSPECTION, NORMOCEPHALIC Skin: Positive for: Normal Color, Warm, DRY Eye Exam: Positive for: EOMI, Normal appearance, PERRL ENT: Positive for: Normal ENT Inspection Neck: Positive for: Normal, Painless ROM Cardiovascular/Chest: Positive for: Regular Rate, Rhythm Respiratory: Positive for: CNT, Normal Breath Sounds Gastrointestinal/Abdominal: Positive for: Bowel Sounds, Soft, Tenderness (B/L LQ ) Back: Positive for: L CVA Tenderness, R CVA Tenderness Extremity: Positive for: Normal ROM Neurologic/Psych: Positive for: Alert, Oriented - Laboratory Results Result Diagrams: 01/31/17 11:00 01/31/17 11:00 - ECG O2 Sat by Pulse Oximetry: 100 Medical Decision Making Medical Decision Making: Initial Impression: Dysuria Initial plan: * VBG * urine dipstick * urinalysis * urine culture * blood culture * labs * reevaluation [address] Dillard (urologist) who reports patient can be discharged home to be given pyridium and continue with the antibiotics. --------- Scribe Attestation: Documented by Gladys Rivers, acting as a scribe for Gladys Downey MD. Provider Scribe Attestation: All medical record entries made by the Scribe were at my direction and personally dictated by me. I have reviewed the chart and agree that the record accurately reflects my personal performance of the history, physical exam, medical decision making, and the department course for this patient. I have also personally directed, reviewed, and agree with the discharge instructions and disposition Disposition - Clinical Impression Clinical Impression: UTI (urinary tract infection) - Disposition Referrals: Federico Dillard MD [Staff Provider] - Condition: STABLE Additional Instructions: CONTINUE AMPICILLIN PRESCRIBED. Prescriptions: Phenazopyridine [Pyridium] 200 mg PO TID PRN #6 tab PRN Reason: Bladder Spasm Instructions: Urinary Tract Infection in Women (ED) Forms: [facility] (Divehi) Print Language: HEBREW
[2017-01-31 11:07] LABS: VENOUS BLOOD GAS BASE EXCESS 0.9 mmol/L (0.0-2.0); VENOUS BLOOD GAS PCO2 39 mmHg (40-60); VENOUS BLOOD PH 7.42 (7.32-7.43)
[2017-01-31 11:26] LABS: RBC URINE 30 /hpf (0-3); URINE BACTERIA RARE (<OCC); URINE BILIRUBIN NEGATIVE (NEGATIVE); URINE BLOOD MODERATE (NEGATIVE); URINE COLOR AMBER (YELLOW); URINE GLUCOSE (UA) NEG (Normal); URINE KETONE NEGATIVE (NEGATIVE); URINE LEUKOCYTE ESTERASE TRACE Leu/uL (Negative); URINE PROTEIN 30 mg/dL (NEGATIVE); WBC URINE 14 /hpf (0-5)
[2017-01-31 11:33] LABS: BASO % 0.2 % (0.0-2.0); EOS # 0.1 K/uL (0.0-0.7); EOS % 0.6 % (0.0-4.0); HEMATOCRIT 42.9 % (34.0-47.0); LYMPH # 0.9 K/uL (1.0-4.3); LYMPH % 8.6 % (20.0-40.0); MEAN CELL VOLUME 84.3 fl (81.0-99.0); MEAN CORPUSCULAR HEMOGLOBIN 28.1 pg (27.0-31.0); MEAN CORPUSCULAR HGB CONC 33.3 g/dL (33.0-37.0); MEAN PLATELET VOLUME 9.7 fl (7.2-11.7); MONO # 0.8 K/uL (0.0-0.8); MONO % 7.6 % (0.0-10.0); NEUT # 8.6 K/uL (1.8-7.0); NRBC % 0.1 % (0.0-0.0); RED CELL DISTRIBUTION WIDTH 14.7 % (11.5-14.5); WHITE BLOOD COUNT 10.3 K/uL (4.8-10.8)
[2017-01-31 11:36] LABS: ALB/GLOB RATIO 1.2 (1.0-2.1); ALKALINE PHOSPHATASE 67 U/L (38-126); ALT/SGPT 24 U/L (9-52); AST/SGOT 22 U/L (14-36); BILIRUBIN,TOTAL 1.8 mg/dl (0.2-1.3); BLOOD UREA NITROGEN 9 mg/dl (7-17); CALCIUM 9.6 mg/dL (8.4-10.2); CARBON DIOXIDE 23 mmol/L (22-30); CHLORIDE 104 mmol/L (98-107); GFR AFRICAN-AMERICAN > 60; GLUCOSE,RANDOM 100 mg/dL (65-105); SODIUM 136 mmol/l (132-148); TOTAL PROTEIN 7.6 G/DL (6.3-8.2)
[2017-01-31 11:57] LABS: PLATELET COUNT 79 K/uL (130-400)
[2017-01-31 12:05] LABS: EOSINOPHIL 1 % (0-7); NEUTROPHIL 85 % (42-75); TOTAL CELLS COUNTED 100
[2017-01-31 14:09] VITALS: RESP 19
== END 2017-01-31 14:09 | disposition home or self-care (01) ==
LOC: H.ER 10:17
DX: R11.2 Nausea with vomiting, unspecified (principal); N39.0 Urinary tract infection, site not specified; I10 Essential (primary) hypertension

== ENCOUNTER 2017-08-22 10:43 | Emergency (ER) | payer MEDICARE, OTHER ==
[2017-08-22 10:44] VITALS: BMI 28.3
[2017-08-22 14:20] LABS: BASO % 0.5 % (0.0-2.0); EOS # 0.2 K/uL (0.0-0.7); EOS % 2.3 % (0.0-4.0); HEMOGLOBIN 14.6 g/dL (12.0-16.0); LYMPH # 1.4 K/uL (1.0-4.3); MEAN CELL VOLUME 84.7 fl (81.0-99.0); MEAN CORPUSCULAR HEMOGLOBIN 28.1 pg (27.0-31.0); MEAN CORPUSCULAR HGB CONC 33.2 g/dL (33.0-37.0); MEAN PLATELET VOLUME 9.7 fl (7.2-11.7); MONO # 0.6 K/uL (0.0-0.8); MONO % 9.1 % (0.0-10.0); NEUT # 4.3 K/uL (1.8-7.0); NEUT % 66.1 % (50.0-75.0); NRBC % 0.1 % (0.0-0.0); RBC 5.18 Mil/uL (3.80-5.20); RED CELL DISTRIBUTION WIDTH 15.2 % (11.5-14.5); WHITE BLOOD COUNT 6.5 K/uL (4.8-10.8)
[2017-08-22 14:22] LABS: SQUAMOUS EPITHIAL 1 /hpf (0-5); URINE BACTERIA MOD (<OCC); URINE BILIRUBIN NEGATIVE (NEGATIVE); URINE BLOOD MODERATE (NEGATIVE); URINE CLARITY CLOUDY (Clear); URINE COLOR YELLOW (YELLOW); URINE GLUCOSE (UA) NEG (Normal); URINE LEUKOCYTE ESTERASE LARGE Leu/uL (Negative); URINE PROTEIN NEGATIVE (NEGATIVE); URINE UROBILINOGEN 0.2-1.0 mg/dL (0.2-1.0)
--- NOTE | 2017-08-22 15:13 | ED PDOC ---
HPI: Female Pain Time Seen by Provider: 08/22/17 12:28 Chief Complaint (Nursing): Female Genitourinary Chief Complaint (Provider): [place] on urination, RLQ pain History Per: Patient History/Exam Limitations: no limitations Onset/Duration Of Symptoms: Days (2) Current Symptoms Are (Timing): Still Present Additional Complaint(s): Pt reports urinary incontinence for over 1 year. Pt states with that she had RLQ pain. Pt states yesterday she was having the pain, which is normally on/off , and burning on urination. Pt states that she also felt that her RUQ qas swollen yesterday. Pt states she had hepatitis in the past but was treated for it Past Medical History Reviewed: Historical Data, Nursing Documentation, Vital Signs Vital Signs: Last Vital Signs Temp 99.2 F 08/22/17 11:06 Pulse 71 08/22/17 11:06 Resp 16 08/22/17 11:06 BP 164/88 H 08/22/17 11:06 Pulse Ox 97 08/22/17 11:06 - Medical History PMH: COPD, HTN, Pneumonia Denies: Chronic Kidney Disease - Surgical History Surgical History: No Surg Hx - Family History Family History: States: Unknown Family Hx - Living Arrangements Living Arrangements: With Family - Social History Current smoker - smoking cessation education provided: No - Home Medications Home Medications: Ambulatory Orders Medication Instructions Recorded ALPRAZolam [Xanax] 1 mg PO TID PRN 06/08/16 [place]-3 Fatty Acids/Fish Oil 1,000 mg PO DAILY 06/08/16 [[place]-3 1,000 mg Softgel] Cyanocobalamin [Vitamin B12 1000 1,000 mcg PO DAILY #14 tab 06/13/16 mcg Tab] Albuterol HFA [Ventolin HFA 90 2 puff IH Q4H PRN 08/22/16 mcg/actuation (8 g)] Budesonide/Formoterol Fumarate 1 puff IH Q12H 08/22/16 [Symbicort 160-4.5 Mcg Inhaler] Valsartan [Diovan] 160 mg PO DAILY #30 tablet 08/25/16 Ampicillin Trihydrate [Ampicillin 500 mg PO Q8H 01/31/17 Trihydrate] Fluticasone Propionate [Flonase] 2 spray REBA DAILY PRN 01/31/17 Magnesium Oxide [Magox 400] 400 mg PO DAILY 01/31/17 Montelukast [Singulair] 10 mg PO QPM 01/31/17 Phenazopyridine [Pyridium] 200 mg PO TID PRN #6 tab 01/31/17 Turmeric Root Extract [Turmeric] 500 mg PO DAILY 01/31/17 Ciprofloxacin [Cipro] 500 mg PO BID #10 tab 08/22/17 traMADol [Ultram] 50 mg PO Q6H PRN #15 tab 08/22/17 - Allergies Allergies/Adverse Reactions: Allergies Allergy/AdvReac Type Severity Reaction Status Date / Time Sulfa (Sulfonamide Allergy RASH Verified 01/31/17 10:21 Antibiotics) Review of Systems ROS Statement: Except As Marked, All Systems Reviewed And Found Negative Genitourinary Female: Positive for: Dysuria Neurological: Negative for: Weakness, Numbness Physical Exam - Reviewed Nursing Documentation Reviewed: Yes Vital Signs Reviewed: Yes - Physical Exam Appears: Positive for: Well, Non-toxic, No Acute Distress Head Exam: Positive for: ATRAUMATIC, NORMAL INSPECTION, NORMOCEPHALIC Skin: Positive for: Normal Color, Warm, DRY Eye Exam: Positive for: EOMI, Normal appearance, PERRL ENT: Positive for: Normal ENT Inspection Neck: Positive for: Normal, Painless ROM Cardiovascular/Chest: Positive for: Regular Rate, Rhythm Respiratory: Positive for: CNT, Normal Breath Sounds Gastrointestinal/Abdominal: Positive for: Normal Exam, Soft. Negative for: Tenderness Back: Positive for: Normal Inspection Extremity: Positive for: Normal ROM Neurologic/Psych: Positive for: Alert, Oriented - Laboratory Results Result Diagrams: 08/22/17 14:05 08/22/17 15:38 - ECG O2 Sat by Pulse Oximetry: 97 Medical Decision Making Medical Decision Makin - Pt requesting food. Pt reports feeling much better on re-evaluation. Disposition - Clinical Impression Clinical Impression: UTI (urinary tract infection) - Patient ED Disposition Is Patient to be Admitted: No Counseled Patient/Family Regarding: Diagnosis, Need For Followup, Rx Given - Disposition Referrals: Maya Rodrigez MD [Medical Doctor] - Disposition: Routine/Home Disposition Time: 17:39 Condition: GOOD Prescriptions: Ciprofloxacin [Cipro] 500 mg PO BID #10 tab traMADol [Ultram] 50 mg PO Q6H PRN #15 tab PRN Reason: Pain Instructions: Urinary Tract Infection, Adult (DC) Forms: [facility] (Luxembourger)
[2017-08-22 16:17] LABS: ALB/GLOB RATIO 1.1 (1.0-2.1); ALBUMIN 4.1 g/dL (3.5-5.0); ALT/SGPT 32 U/L (9-52); AST/SGOT 21 U/L (14-36); BLOOD UREA NITROGEN 13 mg/dl (7-17); CALCIUM 9.6 mg/dL (8.4-10.2); GFR AFRICAN-AMERICAN > 60; GFR NON-AFRICAN AMERICAN > 60; LIPASE 66 U/L (23-300)
[2017-08-22] MEDS ORDERED: cefTRIAXone (Rocephin) 1 gm Inj ONE (16:47)
[2017-08-22 17:57] VITALS: BP 140/52; PULSE 76; RESP 18; TEMP 98.1; O2SAT 98
== END 2017-08-22 18:10 | disposition home or self-care (01) ==
LOC: H.ER 10:43
DX: N39.0 Urinary tract infection, site not specified (principal); I10 Essential (primary) hypertension; J44.9 Chronic obstructive pulmonary disease, unspecified
CPT/HCPCS: 80053; 81003; 83690; 85025; 87086; 87181; 96365; 99285; J0696

== ENCOUNTER 2018-02-05 06:54 | Day surgery (SDC) | payer MEDICARE, OTHER ==
[2018-01-23 11:26] VITALS: BMI 28.1
[2018-02-05] MEDS ORDERED: Lactated Ringer's 1,000 ML IV ONE (08:00)
[2018-02-05] MEDS ORDERED: Propofol 10 mg/ml Inj (20 ML) ONE (08:29)
[2018-02-05] MEDS ORDERED: cefTRIAXone (Rocephin) 1 gm Inj ONE (09:12)
[2018-02-05] MEDS ORDERED: Dexamethasone 4 mg/1 ml ONE (09:55)
[2018-02-05] MEDS ORDERED: ePHEDrine 50 mg/ml Inj ONE (10:04)
[2018-02-05] MEDS ORDERED: Dexamethasone 4 mg/1 ml IVP PRN (10:27)
[2018-02-05 12:28] VITALS: RESP 18
[2018-02-05 13:27] VITALS: BP 131/78; PULSE 70; TEMP 97.4; O2SAT 97
--- NOTE | 2018-02-05 20:30 | OP ---
PROCEDURE DATE: 02/05/2018 PREOPERATIVE DIAGNOSIS: Overactive bladder with urge incontinence. POSTOPERATIVE DIAGNOSIS: Overactive bladder with urge incontinence. PROCEDURE PERFORMED: Cystoscopy with an intravesical insertion of Botox. SURGEON: Maya Rodrigez MD DESCRIPTION OF PROCEDURE: The patient was placed in the operating room table in dorsal lithotomy position. The area of the groin was draped and prepped in a sterile manner. Using a standard cystoscope, I entered into the bladder atraumatically. At this time, we had to prepare the dose of 100 units of Botox into 20 mL. At this point then, 10 different locations in the proximal to the trigone in a fan-shaped manner, 0.5 mL increments of Botox was injected subcu into the bladder floor. Once all the medicine was instilled, I then drained the bladder, filled it partially with sterile water, and then the patient was taken from the operating room in good condition. Maya Rodrigez MD
== END 2018-02-05 13:35 | disposition home or self-care (01) ==
LOC: H.OPSURG 06:54
PROVIDERS: ATTEND Urology
DX: N32.81 Overactive bladder (principal); N39.41 Urge incontinence; M19.90 Unspecified osteoarthritis, unspecified site; J44.9 Chronic obstructive pulmonary disease, unspecified; I10 Essential (primary) hypertension
CPT/HCPCS: 52287; J0588; J0696; J1100; J1170; J2001; J2405; J2704; J3010; J7120

== ENCOUNTER 2018-08-06 01:28 | Emergency (ER) | payer MEDICARE, OTHER ==
[2018-08-06 01:39] VITALS: BMI 30.9
[2018-08-06] MEDS ORDERED: Sodium Chloride 0.9% 1,000 ML IV STA (02:10)
--- NOTE | 2018-08-06 02:23 | ED PDOC ---
HPI: Chest Pain Time Seen by Provider: 08/06/18 01:52 Chief Complaint (Nursing): Dizziness/Lightheaded Chief Complaint (Provider): Anxiety/Chest Pain History Per: Patient History/Exam Limitations: no limitations Additional Complaint(s): 68 y/o female with history of anxiety and hypertension presents to the ED with anxiety and chest pain, onset around 10 pm. Patient reports she normally takes Xanax 1 mg 3 times daily for the past 10 years. She states she ran out and her next scheduled appointment with her psychiatrist is on August 15. Patient states she has not taken Xanax for x2 days and feels jittery, anxious along with palpitations, chest tightness, and shortness of breath. Patient has also vomited 4 times, non bloody non-bilious. Past Medical History Reviewed: Historical Data, Nursing Documentation, Vital Signs Vital Signs: Last Vital Signs Temp 97.6 F 08/06/18 01:39 Pulse 64 08/06/18 01:39 Resp 18 08/06/18 01:39 BP 168/104 H 08/06/18 01:39 Pulse Ox 99 08/06/18 01:39 - Medical History PMH: Asthma, COPD, HTN, Pneumonia, Rheumatoid Arthritis (hands,joints) Denies: Chronic Kidney Disease - Surgical History Surgical History: No Surg Hx - Family History Family History: States: Unknown Family Hx - Social History Current smoker - smoking cessation education provided: No Alcohol: None Drugs: Denies - Home Medications Home Medications: Ambulatory Orders Medication Instructions Recorded ALPRAZolam [Xanax] 1 mg PO TID PRN 06/08/16 [place]-3 Fatty Acids/Fish Oil 1,000 mg PO DAILY 06/08/16 [[place]-3 1,000 mg Softgel] Cyanocobalamin [Vitamin B12 1000 1,000 mcg PO DAILY #14 tab 06/13/16 mcg Tab] Albuterol HFA [Ventolin HFA 90 2 puff IH Q4H PRN 08/22/16 mcg/actuation (8 g)] Budesonide/Formoterol Fumarate 1 puff IH Q12H 08/22/16 [Symbicort 160-4.5 Mcg Inhaler] Valsartan [Diovan] 160 mg PO DAILY #30 tablet 08/25/16 Fluticasone Propionate [Flonase] 2 spray REBA DAILY PRN 01/31/17 Magnesium Oxide [Magox 400] 400 mg PO DAILY 01/31/17 Montelukast [Singulair] 10 mg PO QPM 01/31/17 Ciprofloxacin [Cipro] 1 tab PO BID 02/05/18 Tramadol HCl/Acetaminophen 1 each PO Q8 PRN 02/05/18 [Ultracet Tablet] - Allergies Allergies/Adverse Reactions: Allergies Allergy/AdvReac Type Severity Reaction Status Date / Time Sulfa (Sulfonamide Allergy RASH Verified 08/06/18 01:38 Antibiotics) Review of Systems ROS Statement: Except As Marked, All Systems Reviewed And Found Negative Cardiovascular: Positive for: Chest Pain (tightness), Palpitations Gastrointestinal: Positive for: Vomiting Psych: Positive for: Anxiety Physical Exam - Reviewed Nursing Documentation Reviewed: Yes Vital Signs Reviewed: Yes - Physical Exam Appears: Positive for: Well, Non-toxic, No Acute Distress Head Exam: Positive for: ATRAUMATIC, NORMAL INSPECTION, NORMOCEPHALIC Skin: Positive for: Normal Color, Warm, DRY Eye Exam: Positive for: EOMI, Normal appearance, PERRL ENT: Positive for: Normal ENT Inspection Neck: Positive for: Normal, Painless ROM Cardiovascular/Chest: Positive for: Regular Rate, Rhythm. Negative for: Murmur Respiratory: Positive for: Normal Breath Sounds. Negative for: Respiratory Distress Gastrointestinal/Abdominal: Positive for: Normal Exam, Soft. Negative for: Tenderness Back: Positive for: Normal Inspection Extremity: Positive for: Normal ROM. Negative for: Pedal Edema, Deformity Neurological/Psych: Positive for: Awake, Alert, Normal Tone, Mood/Affect (anxious). Negative for: Motor/Sensory Deficits - Laboratory Results Result Diagrams: 08/06/18 02:26 08/06/18 02:26 - ECG O2 Sat by Pulse Oximetry: 99 (RA) Pulse Ox Interpretation: Normal Medical Decision Making Medical Decision Making: Time: 02:05 Impression: 68 y/o with acute anxiety Initial Plan: * Labs * IV Fluids * Xanax * Zofran 02:15 Crisis evaluation ordered. 03:50 Labs reviewed no clinically significant abnormalities. Patient was evaluated by crisis and cleared for discharge. Patient is to follow up with psychiatrist, Dr. Au. Diagnosis is anxiety. -- Scribe Attestation: Documented by Florencio Hawkins, acting as a scribe forCharlie Hernadez MD Provider Scribe Attestation: All medical record entries made by the Scribe were at my direction and personally dictated by me. I have reviewed the chart and agree that the record accurately reflects my personal performance of the history, physical exam, medical decision making, and the department course for this patient. I have also personally directed, reviewed, and agree with the discharge instructions and disposition Disposition - Clinical Impression Clinical Impression: Anxiety - Patient ED Disposition Is Patient to be Admitted: No - Disposition Disposition: Routine/Home Disposition Time: 03:50 Condition: STABLE Additional Instructions: AYO MAJOR, thank you for letting us take care of you today. Your provider was Charlie Hrenadez MD and you were treated for NAUSEA,VOMITING. The emergency medical care you received today was directed at your acute symptoms. If you were prescribed any medication, please fill it and take as directed. It may take several days for your symptoms to resolve. Return to the Emergency Department if your symptoms worsen, do not improve, or if you have any other problems. Please contact your doctor or call one of the physicians/clinics you have been referred to that are listed on the Patient Visit Information form that is included in your discharge packet. Bring any paperwork you were given at discharge with you along with any medications you are taking to your follow up visit. Our treatment cannot replace ongoing medical care by a primary care provider outside of the emergency department. Thank you for allowing the [facility] team to be part of your care today. If you had an X-Ray or CT scan: A Radiologist will review the ED reading if any change in treatment is needed we will contact you. If you had a blood, urine, or wound culture: It will take several days for the r esults, if any change in treatment is needed we will contact you. If you had an STI test: It will take 48 hours for the results. Please call after 1 week if you have not heard back. Instructions: Anxiety, Adult (DC) Forms: [facility] (Romanian)
[2018-08-06 02:31] LABS: BASO % 0.6 % (0.0-2.0); EOS # 0.1 K/uL (0.0-0.7); EOS % 2.3 % (0.0-4.0); HEMOGLOBIN 14.7 g/dL (12.0-16.0); LYMPH # 1.5 K/uL (1.0-4.3); LYMPH % 24.4 % (20.0-40.0); MEAN CELL VOLUME 85.3 fl (81.0-99.0); MEAN CORPUSCULAR HEMOGLOBIN 28.2 pg (27.0-31.0); MEAN PLATELET VOLUME 9.4 fl (7.2-11.7); MONO # 0.6 K/uL (0.0-0.8); MONO % 9.7 % (0.0-10.0); NEUT # 3.8 K/uL (1.8-7.0); NRBC % 0.1 % (0.0-0.0); RBC 5.2 Mil/uL (3.80-5.20); RED CELL DISTRIBUTION WIDTH 14.4 % (11.5-14.5)
[2018-08-06 02:40] LABS: ALB/GLOB RATIO 1.2 (1.0-2.1); ALBUMIN 4.4 g/dL (3.5-5.0); ALT/SGPT 20 U/L (9-52); AST/SGOT 26 U/L (14-36); BLOOD UREA NITROGEN 14 mg/dl (7-17); CALCIUM 9.8 mg/dL (8.4-10.2); GFR NON-AFRICAN AMERICAN > 60
[2018-08-06 04:14] VITALS: BP 151/71; PULSE 58; RESP 16; TEMP 97.9; O2SAT 100
--- NOTE | 2018-08-06 08:43 | CARD ---
APPROVED REPORT Date of service: 08/06/2018 EKG Measurement Heart [id number] <Conclusion> Normal sinus rhythm Minimal voltage criteria for LVH, may be normal variant Borderline ECG
== END 2018-08-06 04:16 | disposition home or self-care (01) ==
LOC: H.ER 01:28
DX: F41.9 Anxiety disorder, unspecified (principal); I10 Essential (primary) hypertension; J44.9 Chronic obstructive pulmonary disease, unspecified; M06.9 Rheumatoid arthritis, unspecified; Z88.2 Allergy status to sulfonamides
CPT/HCPCS: 80053; 84484; 85025; 93005; 96360; 99283; J2405; J7030